=== PATIENT | female | born 1970 | race Caucasian/White ===

== ENCOUNTER → 2019-03-21 | Outpatient (CLI) | payer BC, SELFPAY ==
[2019-03-21 14:50] VITALS: BMI 30.1
[2019-03-21 16:23] LABS: Absolute Lymphocyte Count 2.14 X10^3/uL (0.83-4.51); Absolute Neutrophil Count 5.8 X10^3/uL (2.0-7.7); Basophil# 0.05 X10^3/uL; Basophil% 0.6 % (0-1); Eosinophil# 0.07 X10^3/uL; Eosinophils% 0.8 % (0-5); Hematocrit 39.1 % (37-47); Hemoglobin 12.8 g/dL (12.0-15.0); Lymphocyte # 2.14 X10^3/ul (4.0); Lymphocyte % 23.8 % (19-41); Mean Corp Hgb Conc 32.7 g/dL (32-36); Mean Corpuscular Hgb 32.6 pg (27.0-32.0); Mean Corpuscular Volume 99.5 fL (81-99); Mean Platelet Vol. 9.2 fl (6.2-12.0); Monocyte# 0.88 X10^3/uL; Monocyte% 9.8 % (0-10); NRBC Flagged by Analyzer 0 % (0-5); Neutrophil # 5.83 X10^3/uL (2.7-7.7); Neutrophil % 64.8 % (47-70); Platelet Count 248 K/mm3 (150-450); RBC Distribution Width CV 11.4 % (11.6-14.6); RBC Distribution Width SD 41.8 fl (35.1-43.9); Red Blood Count 3.93 M/mm3 (4.2-5.4)
[2019-03-21 17:04] LABS: Anion Gap 5 (5-15); BUN 19 mg/dL (7-18); BUN/Creat Ratio 21.7 RATIO (10-20); Chloride 108 mmol/L (98-107); Creatinine, Serum 0.88 mg/dL (0.55-1.02); EST Glomerular Filtration Rate 73 mL/min (>60); Est Glom Filt Rate - Afr Amer 88 mL/min (>60); Glucose 80 mg/dL (74-106); Magnesium 2.2 mg/dL (1.6-2.6); Potassium 3.7 mmol/L (3.5-5.1); Sodium Level 138 mmol/L (136-145); Thyroid Stim Hormone (TSH) 1.92 uIU/mL (0.358-3.74)
== END | disposition home or self-care (01) ==
LOC: LAB 15:36
PROVIDERS: Family Provider Family Medicine; PCP Family Medicine; Referring Provider Internal Medicine Cardiovascular Disease; Visit Provider Internal Medicine Cardiovascular Disease
DX: Z87.898 Personal history of other specified conditions (principal)
CPT/HCPCS: 36415; 80048; 83735; 84443; 85025

== ENCOUNTER → 2019-03-23 | Outpatient (CLI) | payer BC, SELFPAY ==
[2019-03-21 14:50] VITALS: BMI 30.1
== END | disposition home or self-care (01) ==
LOC: PSN 12:45
PROVIDERS: Family Provider Family Medicine; PCP Family Medicine; Referring Provider Internal Medicine Cardiovascular Disease; Visit Provider Internal Medicine Cardiovascular Disease
DX: Z87.898 Personal history of other specified conditions (principal)
CPT/HCPCS: 93225; 93226

== ENCOUNTER → 2019-04-16 | Outpatient (CLI) | payer BC, SELFPAY ==
[2019-03-21 14:50] VITALS: BMI 30.1
--- NOTE | 2019-04-16 14:23 | ECHOD_ITS ---
Reason For Study: ARRHYTHMIA Procedure This was a 2D Doppler, Color Flow transthoracic echocardiogram. Exam performed in department. Left Ventricle Normal LV size. Left ventricular systolic function is normal. The estimated ejection fraction is 64 %. Stage 1 diastolic dysfunction. No regional wall motion abnormalities noted. Right Ventricle Normal RV size. Normal systolic function. Atria Normal left atrium. Normal right atrium. Mitral Valve Normal mitral valve. Tricuspid Valve Normal tricuspid valve. Mild tricuspid valve insufficiency. Aortic Valve Normal aortic valve. Trisinus/trileaflet aortic valve. Pulmonic Valve Normal pulmonic valve. Great Vessels Normal aortic root. The pulmonary artery is normal size. Normal inferior vena cava. Pericardium/Pleural No pericardial effusion. MMode/2D Measurements & Calculations LVIDd: 4.6 cm IVSd: 0.97 cm Ao root diam: 3.5 cm LVIDs: 3.2 cm LVPWd: 0.93 cm RVDd: 3.6 cm FS: 31.3 % LAV(MOD-bp): 56.6 ml LVAd ap4: 36.8 cm2 SV(MOD-sp4): 78.2 ml LAV(MOD-bp) Indexed: 28.3 ml/m2 EDV(MOD-sp4): 118.6 ml LAV(MOD-sp2): 60.3 ml EDV(sp4-el): 123.4 ml LAV(MOD-sp4): 48.5 ml LVAs ap4: 18.4 cm2 ESV(MOD-sp4): 40.4 ml ESV(sp4-el): 40.6 ml EF(MOD-sp4): 65.9 % EF(sp4-el): 67.1 % SV(sp4-el): 82.9 ml LA A4 area: 19.2 cm2 LA dimension(2D): 3.2 cm RA A4 area: 13.8 cm2 Time Measurements MV dec time: 0.24 sec Doppler Measurements & Calculations MV E max sukhi: 99.0 cm/sec Lat Peak E' Sukhi: 10.6 cm/sec Med Peak E' Sukhi: 6.5 cm/sec MV A max sukhi: 112.2 cm/sec E/E' lat: 9.3 E/E' med: 15.3 MV E/A: 0.88 Ao V2 max: 159.4 cm/sec LV V1 max: 108.1 cm/sec PA V2 max: 93.2 cm/sec Ao max P.2 mmHg LV V1 max P.7 mmHg TR max sukhi: 212.0 cm/sec TR max P.3 mmHg Interpretation Summary Normal LV size. Left ventricular systolic function is normal. The estimated ejection fraction is 64 %. Stage 1 diastolic dysfunction. The global longitudinal strain is normal. The global longitudinal strain = -20..4 % (normal). Ordering Physician: Christian Walker Referring Physician: MAI GRAYSON Performed By: Sophia Bull, RORO, RVT
== END | disposition home or self-care (01) ==
PROVIDERS: Family Provider Family Medicine; PCP Family Medicine; Referring Provider Internal Medicine Cardiovascular Disease; Visit Provider Internal Medicine Cardiovascular Disease
DX: I49.8 Other specified cardiac arrhythmias (principal); Z87.898 Personal history of other specified conditions
CPT/HCPCS: 93306

== ENCOUNTER → 2019-05-14 09:07 | Outpatient (CLI) | payer BC, SELFPAY ==
[2019-04-20 14:39] VITALS: BMI 28.8
[2019-05-14 10:12] LABS: Anion Gap 8 (5-15); BUN 18 mg/dL (7-18); Calcium,Total 9.4 mg/dL (8.5-10.1); Chloride 104 mmol/L (98-107); EST Glomerular Filtration Rate 70 mL/min (>60); Est Glom Filt Rate - Afr Amer 85 mL/min (>60); Glucose 102 mg/dL (74-106); Potassium 3.8 mmol/L (3.5-5.1); Sodium Level 140 mmol/L (136-145)
== END ==
PROVIDERS: Family Provider Family Medicine; PCP Family Medicine; Referring Provider Physician Assistant Medical; Visit Provider Physician Assistant Medical
DX: I10 Essential (primary) hypertension (principal)
CPT/HCPCS: 36415; 80048

== ENCOUNTER → 2019-08-06 13:41 | Outpatient (CLI) | payer BC, SELFPAY ==
[2019-08-06 10:34] VITALS: BMI 29.9
--- NOTE | 2019-08-06 13:43 | VDLE_ITS ---
Reason For Study: Pain RIGHT LEFT GSV is normal. GSV is normal. CFV is compressible, spontaneous, phasic, CFV is compressible, spontaneous, phasic, competent and demonstrates normal competent, and demonstrates normal augmentation. augmentation. FV is compressible, spontaneous, phasic, FV is compressible, spontaneous, phasic, competent and demonstrates normal competent and demonstrates normal augmentation. augmentation. POP V is compressible, spontaneous, phasic, POP V is compressible, spontaneous, phasic, competent and demonstrates normal competent and demonstrates normal augmentation. augmentation. T/P Trunk is compressible. T/P Trunk is compressible. PTV is compressible. PTV is compressible. RT PerV is compressible. LT PerV is compressible. Procedure Exam performed in department. A preliminary report was called and/or faxed to [facility]. Interpretation Summary No evidence for acute deep venous thrombosis bilateral lower extremities with patent and compressible bilateral great saphenous veins. Ordering Physician: Dominique Allison Referring Physician: Luis Irvin Performed By: Aleja Vann RVT
== END ==
PROVIDERS: Family Provider Family Medicine; PCP Family Medicine; Referring Provider Physician Assistant Medical; Visit Provider Physician Assistant Medical
DX: M79.604 Pain in right leg (principal); M79.605 Pain in left leg; R60.9 Edema, unspecified
CPT/HCPCS: 93970

== ENCOUNTER 2020-02-20 05:12 | Emergency (ER) | payer BC, SELFPAY ==
[2019-08-06 10:34] VITALS: BMI 29.9
[2020-02-20 05:13] VITALS: BP 156/110; PULSE 72; RESP 16; TEMP 36.2; O2SAT 97; BMI 29.9
[2020-02-20] MEDS: cycloBENZAPRine HCl 10 MG Tablet PO (06:20)
[2020-02-20] MEDS: Ibuprofen 600 MG Tablet PO (06:20)
[2020-02-20] MEDS: Morphine 4 MG/ML Syringe IM (06:20)
--- NOTE | 2020-02-20 06:52 | ED.VIS.BACK ---
History of Present Illness Chief Complaint: Back Informant: Patient Onset: Today Context: Sudden Onset Injury: Bending Timing: Continuous Quality: Sharp Location: Lumbar Associated Symptoms: Radiation to Left Leg Narrative: Patient is a 49-year-old female with history of pain in her right lower back. Patient states it radiates down her left leg and into her left groin as well as up her back. She states is worse with bending over or movement. Patient states last night she was taken a shower and she dropped the soap. 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 Had hard time getting up. She had to have her significant other help her out of the shower. She took Tylenol with no significant leaf of the symptoms. Patient is never anything like this before. Patient denies a history of IV drug use or cancer. She denies any fever or chills. She denies any bowel or bladder incontinence. She denies any paresthesias of her lower extremities or her groin area. Patient denies any other complaints or concerns at this time. Past Medical History - Allergies and Home Meds Allergies/Adverse Reactions: Allergies lisinopril Allergy (Severe, Verified 08/06/19 11:15) hives venom-honey bee Allergy (Verified 08/06/19 11:15) Anaphylaxis hydrochlorothiazide Adverse Reaction (Intermediate, Verified 08/06/19 12:04) Other dizzy diazepam [From Valium] Adverse Reaction (Verified 08/06/19 11:15) hallucinations oxycodone Adverse Reaction (Verified 08/06/19 11:15) itching tramadol Adverse Reaction (Verified 08/06/19 11:15) Vomiting paper tape Allergy (Uncoded 03/21/19 14:44) [facility] Primary Care Physician: Luis Irvin MD [Primary Care Provider] - Past Medical History: - - Pretension, palpitations, hypothyroid Surgical History: noncontributory Smoking Status: Heavy Smoker (>10/day) Review of Systems General: Denies: Chills, Fever, Sweats Eyes: Denies: Visual changes - bilaterally, Diplopia ENT: Denies: Rhinorrhea, Sore throat Cardiovascular: Denies: Chest pain, Palpitations Respiratory: Denies: Dyspnea, Cough, Dyspnea on exertion Gastrointestinal: Denies: Abdominal pain, Nausea, Vomiting, Diarrhea, Melena, Hematochezia Genitourinary: Denies: Dysuria, Hematuria, Frequency Musculoskeletal: Reports: Back pain - Left lower back Skin: Denies: Rash, Wounds Neurological: Denies: Headache, Weakness, Numbness Physical Exam Vital Signs/Narrative: Vital Signs Temp Pulse Resp BP Pulse Ox 02/20/20 05:13 97.1 F L 72 16 156/110 H 97 Inital Vital Signs reviewed: Yes General: Well nourished, Well developed Head: Normocephalic, Atraumatic Eyes: Perrl, EOMI ENT: Moist mucous membranes, No rhinorrhea Neck: Supple, Nontender Cardiovascular: Regular rate, Regular rhythm, No murmurs Respiratory: No distress, CTA bilaterally, Chest nontender Abdomen: Soft, Nontender, Nondistended, Normal bowel sounds, No masses. Negative for: Guarding, Rebound tenderness Back: Normal Inspection, Paraspinal Tenderness - Left lower lumbar, Negative SLR - Right, Positive SLR - Left. Negative for: Spinal tenderness, CVA tenderness Extremeties: Nontender, No edema, - - 2+ bilateral DP pulses Skin: Normal color, No rash Neuro: Alert, Oriented, Normal Strength, Normal Sensation, Normal DTR, Normal Gait Psychological: Normal affect, Normal Mood Diagnostic/Tx/Re-eval - Medical Decision Making Patient is evaluated for atraumatic low back pain. She appears nontoxic no acute distress. She is neurovascular intact. She does not have any red flag symptoms for cauda equina syndrome. I suspect this is muscle skeletal. Patient is treated with IM morphine, p.o. Flexeril and oral Motrin. She be discharged home with Flexeril and Motrin. She is given a work note for today and tomorrow. She is counseled on range of motion as well as heat to her back. Likely this is a muscle spasm but she is counseled possible this could be a herniated disc. She is instructed to follow-up with her primary care doctor as sometimes this requires further imaging and physical therapy. Patient is counseled on signs and symptoms requiring return to the emergency room. Patient verbalizes agreement and understand this plan. Patient discharged home in stable and improved condition. ED Disposition - Plan for ED Patient: Disposition: Home or Assisted Living Diagnosis: Sciatica, left side Instructions: ED LUMBAR RADICULOPATHY Prescriptions: cycloBENZAPRine HCl [Flexeril] 10 mg PO TID PRN #20 tab PRN Reason: Muscle Spasm Transmission Status: Pending to [id number] Ibuprofen [Motrin] 600 mg PO Q6H PRN PRN #20 tab PRN Reason: Pain Score 1-10/10 Transmission Status: Pending to [id number] Referrals: Luis Irvin MD [Primary Care Provider] -
== END 2020-02-20 07:04 | disposition home or self-care (01) ==
PROVIDERS: Emergency Provider Emergency Medicine; PCP Family Medicine
DX: M54.42 Lumbago with sciatica, left side (principal); E03.9 Hypothyroidism, unspecified; R00.2 Palpitations; F17.200 Nicotine dependence, unspecified, uncomplicated; Z79.899 Other long term (current) drug therapy
CPT/HCPCS: 96372; 99283

== ENCOUNTER 2020-11-07 07:52 | Outpatient (RCR) | payer BC, SELFPAY ==
[2020-02-26 14:41] VITALS: BMI 30.9
[2020-11-07] MEDS: COVID-19 VACC, MRNA(PFIZER)/PF 30 MCG/0.3 ML SYRINGE IM (14:04)
[2020-11-28] MEDS: COVID-19 VACC, MRNA(PFIZER)/PF 30 MCG/0.3 ML SYRINGE IM (13:50)
== END 2020-11-07 23:59 ==
LOC: IMMUN 07:52
PROVIDERS: PCP Family Medicine; Visit Provider Family Medicine
DX: Z23 Encounter for immunization (principal)
CPT/HCPCS: 0001A; 0002A; 91300

== ENCOUNTER → 2022-08-07 | Outpatient (CLI) | payer BC, SELFPAY ==
--- NOTE | 2022-08-07 08:39 | CT_ITS ---
INDICATION: Follow-up ORIF fourth metatarsal 02/26/2022 EXAMINATION: CT BONE - CT Lower Extremity W/O Contrast Injection TECHNIQUE: Helically acquired images were obtained of the left foot. 2-D reformats were performed by the technologist. A radiation dose optimization technique was used for this scan. IV Contrast dosage and agent: None. COMPARISON: None. FINDINGS: SOFT TISSUES: No soft tissue swelling or gas. Single orthopedic screw in the distal fourth metatarsal. BONES/JOINTS: No acute fracture. Minimal residual lucency identified in the distal fourth metatarsal at the location of the fixation screw. Minimal posttraumatic deformity. Preservation of the joint spaces. No sclerotic or destructive changes. CT/Extremity Lower without Contra IMPRESSION: Status post ORIF distal fourth metatarsal with significant healing of the fracture in overall anatomic alignment. Electronically Signed: Pako Mackenzie MD at 0:39 EST ,
== END | disposition home or self-care (01) ==
LOC: CT 08:33
PROVIDERS: Visit Provider Student in an Organized Health Care Education/Training Program
DX: S92.345D Nondisplaced fracture of fourth metatarsal bone, left foot, subsequent encounter for fracture with routine healing (principal)
CPT/HCPCS: 73700

== ENCOUNTER → 2022-08-18 | Outpatient (CLI) | payer BC, SELFPAY ==
--- NOTE | 2022-08-18 06:32 | MRI_ITS ---
STUDY: MRI LEFT FOREFOOT WITH AND WITHOUT CONTRAST REASON FOR EXAM: Female, 51 years old. LEFT FOOT PLANTAR NERVE LESION,METALTARSALGIA,FX 4TH MT TECHNIQUE: Standardized fat and water weighted pulse sequences were obtained in all 3 orthogonal planes, post contrast administration. IV 19ML CLARISCAN was administered for the contrast portion of the examination. COMPARISON: CT 08/07/2022 FINDINGS: Normal metatarsophalangeal joint of the hallux. Normal tibial and fibular sesamoids, with normal sesamoids-first metatarsal articulations. Normal interphalangeal joint of the hallux. Normal proximal and distal phalanges of the great toe. Normal medial and lateral heads of the flexor hallucis brevis tendons. Normal flexor and extensor hallucis longus tendons. Small effusions of the second through fifth metatarsophalangeal joints. Normal interphalangeal joints of the second through fifth toes. Normal proximal, middle and distal phalanges of the second through fifth toes. Normal flexor and extensor tendons of the second through fifth toes. Mild second intermetatarsal space bursitis. Healing osteotomy and screw fixation of the neck of the fourth metatarsal. Microtrabecular fracture of the second and third metatarsal bones. Normal intrinsic muscles of the forefoot. There is no demonstrated soft tissue abnormality. MRI/Lower Ext No Joint W/WO Cont IMPRESSION: Healing osteotomy and screw fixation of the neck of the fourth metatarsal with microtrabecular fracture of the head of the second and third metatarsal bones. Electronically Signed: Maikol Panda MD at 9:07 EST ,
== END | disposition home or self-care (01) ==
PROVIDERS: Referring Provider Student in an Organized Health Care Education/Training Program; Visit Provider Student in an Organized Health Care Education/Training Program
DX: S92.345D Nondisplaced fracture of fourth metatarsal bone, left foot, subsequent encounter for fracture with routine healing (principal); G57.62 Lesion of plantar nerve, left lower limb; M77.42 Metatarsalgia, left foot; M77.52 Other enthesopathy of left foot and ankle
CPT/HCPCS: 73720; A9575

== ENCOUNTER → 2023-02-19 | Outpatient (CLI) | payer BC, SELFPAY ==
--- NOTE | 2023-02-19 08:35 | MRI_ITS ---
INDICATION: OCCULT FX VS NERVE ENTRAPMENT, PAIN -- EVAL BASE OF 2ND MT 1ST TMTJ EXAMINATION: MRI - LEFT MR Foot W/O Contrast TECHNIQUE: Multiplanar and multisequence MR images of the LEFT foot. IV Contrast Dosage and Agent: None. COMPARISON: MRI August 18, 2022. CT August 07, 2022. FINDINGS: BONE: Interval amputation of the fourth distal metatarsal with retained phalanges. Normal bone marrow signal including base of the second metatarsal. No intraosseous edema or acute fracture. No aggressive osseous lesion. No osseous erosion or periostitis. JOINTS: Trace nonspecific effusion is along the first second third and fifth metatarsophalangeal joints. No effusion or significant degenerative change along the first or second tarsal metatarsal joint. MUSCLES: Normal bulk and signal. LIGAMENTS: The Lisfranc ligament is intact. TENDONS: The flexor and extensor tendons are intact without tenosynovitis. OTHER SOFT TISSUES: There is focal 4 mm round hypointense T1 and T2 signal mild trace surrounding edema on STIR located between the second and third metatarsophalangeal joints, reference axial image and 14 and 15 and coronal image 9 and 10. 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 Interval resection of the distal fourth metatarsal with retained phalanges. No fracture or acute osseous finding. Nonspecific trace effusions along the first second third and fifth metatarsophalangeal joints with mild underlying plantar subcutaneous soft tissue edema. Exclude clinical evidence of infection. Electronically Signed: Blanco Srivastava MD at 8:42 EDT ,
== END | disposition home or self-care (01) ==
PROVIDERS: Referring Provider Student in an Organized Health Care Education/Training Program; Visit Provider Student in an Organized Health Care Education/Training Program
DX: M79.672 Pain in left foot (principal)
CPT/HCPCS: 73718

== ENCOUNTER 2023-04-27 15:00 | Outpatient (RCR) | payer BC, SELFPAY ==
--- NOTE | 2023-04-20 12:06 | HP.PTEVAL ---
Patient's Visit Information Visit Information Visit Information: SERGIO GAMA is a 52 year old F referred to Physical Therapy by Dr. Cassius Mariano DPM with a diagnosis of Left Foot. Date of Evaluation: 04/20/23 Physical Therapist: Rosmery Martinez DPT Visit Plan Frequency: 2x /Week Duration: 4 Weeks Plan: Aquatics- focus on LE and core strength/stabilization- proprioception (pt is NOT a swimmer) HEP Given IE: sit to stands, SLS Subjective Subjective: See script for previous interventions per MD. Patient reports that she has pain in the top of the foot and he has done shots in the foot and he can't do anymore. She wears [employer] Tennis shoes but she has to be able to wear Steel Toed shoe and she feels that she is really far away from that. The pain is on the top of the foot on the top of the first two toes and she has a hard time standing for 10-15 min then she has to sit down and then she has pain on the outside of the foot because she shifts her weight to the outside of the foot. Worst: 4/10. Agg: standing, walking. Eases: sitting down, cream (sometimes it works). Best: 3/10. Describe the pain as shooting pains on the middle and the outside pains feel like its more bruised. No pain radiates up into the leg. She feels that she walks funny- so she does have some ankle and hip pain sometimes. She has been off work since Last January 2022 (gallbladder) and February 2022 was the first foot surgery. 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 She went to [facility] for therapy prior and they wanted her to strengthen her ankle and put her in a new tennis shoe- 3-4x- Goals: looking to get rid of the pain and try to build tolerance to standing. Shoe: orthotic inserts. She has more pain with uneven surfaces. No N/T in the foot. Her feet and hands are always cold but they are sweaty. Worse in the afternoon. PMHx: diverticulitis, mitro valve prolapse Meds: l-thyroxine, sertraline, lorazepam, ondansetron, metoprolol. Objective Objective: Posture: FH, RS- can correct but does not maintain throughout session Gait: no AD- slightly antalgic- decreased stance on the left LE with decrease heel toe pattern Observation: decreased muscle mass on the left LE gluts, quads and gastroc HR/TR: able with UE support and reports pain in great toe with HR SLS: 5 sec with hip drop and increased muscle activation Palpation: tender along great toe and 5th met, achilles Sensation: WNL ROM: WNL in all planes of the ankle and great toe Strength: Core: poor, Hip: Flexion: 4-/5, Exnt: 4-/5, Add: 4+/5, Abd: 4-/5, IR/ER: 4-/5 Knee: 4+/5, Ankle: 4+/5 throughout Flex: Gastroc: moderate Hamstring: moderate Balance/Special Test Scores Lower Extremity Functional Score: 34 Goals Goal 1:: Patient will be I with HEP and progression Goal Time Frame: 4-6 Weeks Goal 2:: Patient will SLS for 30 sec without loss of balance Goal Time Frame: 4-6 Weeks Goal 3:: Patient will report ability to stand for 30 min without pain Goal Time Frame: 4-6 Weeks Goal 4:: Patient will ambulate >300 feet with a normalized gait pattern. Goal Time Frame: 4-6 Weeks Goal 5:: Patient will maintain proper posture t/o tx session to demo increased core s/s Goal Time Frame: 4-6 Weeks Goal 6:: Patient will report 80% improvement Goal Time Frame: 4-6 Weeks Rehabilitation Potential Physical Therapy Diagnosis: Patient presents with hypomobility- she has decreased LE and core strength/stabilization, proprioception, flex and muscular endurance leading to poor balance, abnormal gait and decreased ability to perform ADL's. Rehabilitation Potential: Good Anticipated Interventions Patient/Client Instruction: Educate patient on: Benefits of Fitness Program Therapeutic Exercise to Include: Strength training, Endurance training, Balance training, Body mechanics, Postural training, Flexibilty training, Gait and locomotor training, Neuromotor development, In an aquatic setting , Passive ROM, Active ROM, Dynamic Lumbar Stabilization and Scapular Strength/Stabilization For the Purpose of:: To improve muscle performance and motor function Text: Thank you for the opportunity to evaluate your patient. For Medicare and Medicare HMO plans, please review the plan of care and approve it. It will need to be FAXED BACK to us at [phone] for Medicare purposes. For Medicare only, by signing this I certify the plan of care. Please let me know if there are questions or concerns regarding this plan of care. Physician Signature: Date:
== END 2023-04-27 19:00 | disposition home or self-care (01) ==
LOC: PT 15:00
PROVIDERS: Referring Provider Student in an Organized Health Care Education/Training Program; Visit Provider Student in an Organized Health Care Education/Training Program
DX: S92.345D Nondisplaced fracture of fourth metatarsal bone, left foot, subsequent encounter for fracture with routine healing (principal); M79.672 Pain in left foot
CPT/HCPCS: 97113; 97162